=== PATIENT | male | born 1995 | race Caucasian/White ===

== ENCOUNTER 2017-12-02 09:20 | Emergency (ER) | payer OTHER, SELFPAY ==
[2017-12-02 09:21] VITALS: BP 128/82; PULSE 68; RESP 18; TEMP 36.6; O2SAT 99; BMI 20.7
--- NOTE | 2017-12-02 09:31 | RAD_ITS ---
STUDY: X-RAY - ABDOMEN/PELVIS REASON FOR EXAM: Male, 22 years old. Low abdominal pain and vomiting constipation TECHNIQUE: Single AP view of the abdomen / pelvis. COMPARISON: None. FINDINGS: Lung bases are filled with debris. There is moderate to abundant stool within the ascending colon and a gassy appearance of the remainder of the colon. There is no demonstrated free abdominal air. The liver spleen and kidneys are mostly of the field of view are obscured. Normal soft tissue structures. Normal visualized osseous structures. RAD/Abdomen Single View (Portable) IMPRESSION: Mild to moderate constipation. Electronically Signed: Penelope Edmonds MD at 9:58 EST Tel , Service support ,
--- NOTE | 2017-12-02 09:32 | ED.VISSUMM ---
- ER Visit Summary Date of Service: 12/02/17 Chief Complaint: Abdominal pain History of Present Illness: The patient is a 22 M who states he has been constipated for the past 2 weeks. He has not taken any stool softeners or laxatives. He states that on Sunday around 0200 hours began to have abdominal pain which she describes the balloon being inflated inside his abdomen. He noted nausea and vomiting. Nausea vomiting had resolved as did the pain returned again last night. He states he has not vomited just a lot of nausea. He is passing little gas. He notes he had a very small bowel movement on Sunday. No fevers. No prior abdominal surgeries. Physical Examination: Afebrile vital signs are stable Gen: Well-nourished well-developed Head: Normocephalic atraumatic Eyes: Perrl EOMI ENT: TMs clear no rhinorrhea moist mucous membranes Neck: Supple no lymphadenopathy no JVD nontender CVS: Regular rate rhythm no murmurs normal S1-S2 Respiratory: No distress clear to auscultation bilaterally chest nontender Abdomen: Soft nondistended normal bowel sounds no masses there is mild diffuse tenderness to palpation without guarding or rebound Back: Nontender Extremity: Nontender no edema Skin: Normal color no rash Neuro: alert orientated ?3 CN II-XII intact normal strength sensation reflexes gait cerebellar Psych: Normal affect normal mood Test Results: Basic labs were negative including white count of 5.4. Abdominal films demonstrates mild to moderate constipation Emergency Department Course and Treatment: Patient received IV fluids and Zofran. I am going to prescribe him some Zofran for nausea as well as magnesium citrate for the constipation. He is to expect some abdominal cramping as his stool begins to move. Return if worsening. Impression: 1. Abdominal pain 2. Constipation This note was generated with [employer] dictation software. It may contain incorrect words, spelling, and punctuation that were not noted in review of the chart prior to signing ED Disposition - Plan for ED Patient: Disposition: Home or Assisted Living Chief Complaint: Abd Pain Instructions: ED Constipation Prescriptions: Ondansetron [Zofran Odt] 4 mg PO Q8H PRN PRN #10 tab PRN Reason: Nausea Magnesium Citrate 150 ml PO TID PRN #600 solution PRN Reason: Constipation Referrals: [facility] Doctor,Out of [Primary Care Provider] - [facility] [GROUP OF PHYSICIANS] - 3-5 Days if not improving
--- NOTE | 2017-12-02 09:37 | ED.DCSUM_ITS ---
- ER Visit Summary Date of Service: 12/02/17 Chief Complaint: Abdominal pain History of Present Illness: The patient is a 22 M who states he has been constipated for the past 2 weeks. He has not taken any stool softeners or laxatives. He states that on Sunday around 0200 hours began to have abdominal pain which she describes the balloon being inflated inside his abdomen. He noted nausea and vomiting. Nausea vomiting had resolved as did the pain returned again last night. He states he has not vomited just a lot of nausea. He is passing little gas. He notes he had a very small bowel movement on Sunday. No fevers. No prior abdominal surgeries. Physical Examination: Afebrile vital signs are stable Gen: Well-nourished well-developed Head: Normocephalic atraumatic Eyes: Perrl EOMI ENT: TMs clear no rhinorrhea moist mucous membranes Neck: Supple no lymphadenopathy no JVD nontender CVS: Regular rate rhythm no murmurs normal S1-S2 Respiratory: No distress clear to auscultation bilaterally chest nontender Abdomen: Soft nondistended normal bowel sounds no masses there is mild diffuse tenderness to palpation without guarding or rebound Back: Nontender Extremity: Nontender no edema Skin: Normal color no rash Neuro: alert orientated ?3 CN II-XII intact normal strength sensation reflexes gait cerebellar Psych: Normal affect normal mood Test Results: Basic labs were negative including white count of 5.4. Abdominal films demonstrates mild to moderate constipation Emergency Department Course and Treatment: Patient received IV fluids and Zofran. I am going to prescribe him some Zofran for nausea as well as magnesium citrate for the constipation. He is to expect some abdominal cramping as his stool begins to move. Return if worsening. Impression: 1. Abdominal pain 2. Constipation This note was generated with [employer] dictation software. It may contain incorrect words, spelling, and punctuation that were not noted in review of the chart prior to signing ED Disposition - Plan for ED Patient: Disposition: Home or Assisted Living Chief Complaint: Abd Pain Instructions: ED Constipation Prescriptions: Ondansetron [Zofran Odt] 4 mg PO Q8H PRN PRN #10 tab PRN Reason: Nausea Magnesium Citrate 150 ml PO TID PRN #600 solution PRN Reason: Constipation Referrals: [facility] Doctor,Out of [Primary Care Provider] - [facility] [GROUP OF PHYSICIANS] - 3-5 Days if not improving
[2017-12-02 09:43] LABS: Absolute Lymphocyte Count 1.71 X10^3/ul (0.83-4.51); Absolute Neutrophil Count 2.6 X10^3/uL (2.0-7.7); Basophil# 0.01 X10^3/uL; Basophil% 0.2 % (0-1); Eosinophil# 0.27 X10^3/uL; Hematocrit 45.4 % (40-54); Hemoglobin 15.9 g/dl (13.0-16.5); Lymphocyte # 1.71 X10^3/ul (4.0); Lymphocyte % 31.8 % (19-41); Mean Corpuscular Hgb 30.6 pg (27.0-32.0); Mean Corpuscular Volume 87.5 fL (80-94); Mean Platelet Vol. 9.8 fl (6.2-12.0); Monocyte# 0.79 X10^3/uL; Monocyte% 14.7 % (0-10); Neutrophil # 2.58 X10^3/uL (2.7-7.7); Neutrophil % 48.1 % (47-70); POSITIVE COUNT NO; POSITIVE DIFFERENTIAL NO; POSITIVE MORPHOLOGY NO; Platelet Count 225 K/mm3 (150-450); RBC Distribution Width CV 12.7 % (11.6-14.6); RBC Distribution Width SD 40.9 fl (35.1-43.9); Red Blood Count 5.19 M/mm3 (4.6-6.2); White Blood Count 5.4 K/mm3 (4.4-11.0)
[2017-12-02 10:00] LABS: ALB/GLOB Ratio 0.9 RATIO (0.9-2.4); AST(SGOT) 16 U/L (15-37); Alanine Aminotransfer ALT/SGPT 19 U/L (16-61); Albumin, Serum 3.7 g/dL (3.2-5.0); Alkaline Phosphatase 46 U/L (45-117); Anion Gap 6 (5-15); BUN 11 mg/dL (7-18); BUN/Creat Ratio 11.6 RATIO (10-20); Calcium,Total 8.7 mg/dL (8.5-10.1); Chloride 105 mmol/L (98-107); Creatinine, Serum 0.95 mg/dL (0.70-1.30); EST Glomerular Filtration Rate 105 mL/min (>60); Est Glom Filt Rate - Afr Amer 128 mL/min (>60); Estimated Creatinine Clearance 110.48 ml/min; Glucose 93 mg/dL (74-106); Lipase 155 U/L (73-393); Potassium 3.6 mmol/L (3.5-5.1); Protein, Total 7.7 g/dL (6.4-8.2); Sodium Level 139 mmol/L (136-145)
[2017-12-02] MEDS: 0.9% Normal Saline 1,000 ML 1000 ML IV (10:00)
[2017-12-02 10:44] VITALS: BP 115/69; PULSE 72; RESP 18; O2SAT 98
== END 2017-12-02 10:45 | disposition home or self-care (01) ==
PROVIDERS: Emergency Provider Emergency Medicine
DX: K59.00 Constipation, unspecified (principal); R11.2 Nausea with vomiting, unspecified; R10.9 Unspecified abdominal pain; F32.9 Major depressive disorder, single episode, unspecified; F41.9 Anxiety disorder, unspecified; Z79.899 Other long term (current) drug therapy
CPT/HCPCS: 74018; 80053; 83690; 85025; 99285; J7030; J2405